=== PATIENT | female | born 1970 | race Caucasian/White ===

== ENCOUNTER 2024-01-29 11:56 | Emergency (ER) | payer SELFPAY ==
--- NOTE | 2024-01-29 12:52 | RAD REPORT ---
EXAM DESCRIPTION: Amanda Single View01/29/2024 12:39 pm CLINICAL HISTORY: cough COMPARISON: none FINDINGS: The lungs appear clear of acute infiltrate. The heart is normal size IMPRESSION: No acute abnormalities displayed
[2024-01-29 13:27] LABS: SARS-CoV-2 Antigen CONTROL BLUE LINE VIS/BG OK
[2024-01-29 13:28] LABS: SARS-CoV-2 Antigen Rapid Res Positive (Negative)
--- NOTE | 2024-01-29 13:35 | ER ---
Nurse's Notes [facility] Name: Mali Fernandez Age: 53 yrs Sex: Female : 1970 Arrival Date: 01/29/2024 Time: 11:56 Bed 9 Private MD: Diagnosis: Upper respiratory infection, COVID-19 Presentation: 01/28 12:25 Chief complaint: Patient states: headache not feeling well since last week, COVID was iw negative at home , also has sore throat and body aches. Coronavirus screen: Client presents with at least one sign or symptom that may indicate coronavirus-19. Ebola Screen: No symptoms or risks identified at this time. Initial Sepsis Screen: Does the patient meet any 2 criteria? No. Patient's initial sepsis screen is negative. Does the patient have a suspected source of infection? No. Patient's initial sepsis screen is negative. Risk Assessment: Do you want to hurt yourself or someone else? Patient reports no desire to harm self or others. Onset of symptoms. 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 - Infectious Disease History:: Denies. - Social history:: Smoking status: Patient denies any tobacco usage or history of. Screenin:25 [facility] ED Fall Risk Assessment (Adult) History of falling in the last 3 months, tl4 including since admission No falls in past 3 months (0 pts) Confusion or Disorientation No (0 pts) Intoxicated or Sedated No (0 pts) Impaired Gait No (0 pts) Mobility Assist Device Used No (0 pt) Altered Elimination No (0 pt) Score/Fall Risk Level 0 - 2 = Low Risk Oriented to surroundings, Maintained a safe environment, Educated pt \T\ family on fall prevention, incl call for assistance when getting out of bed, Assessed \T\ reinforced patient's understanding of fall precautions. Abuse screen: Denies threats or abuse. Denies injuries from another. Nutritional screening: No deficits noted. Tuberculosis screening: No symptoms or risk factors identified. Assessment: 13:30 General: Appears in no apparent distress. Behavior is calm, cooperative. Pain: tl4 Complains of pain in generalized body aches. Neuro: Level of Consciousness is awake, alert, obeys commands, Oriented to person, place, time, situation, Moves all extremities. Full function Gait is steady. Cardiovascular: Capillary refill < 3 seconds Patient's skin is warm and dry. Respiratory: Reports cough that is Airway is patent Respiratory effort is even, unlabored, Respiratory pattern is regular, symmetrical, Breath sounds are clear bilaterally. GI: No signs and/or symptoms were reported involving the gastrointestinal system. : No signs and/or symptoms were reported regarding the genitourinary system. EENT: Reports nasal congestion. Derm: No signs and/or symptoms reported regarding the dermatologic system. Musculoskeletal: No signs and/or symptoms reported regarding the musculoskeletal system. Vital Signs: 12:25 BP 201 / 104; Pulse 90; Resp 18; Temp 99.4; Pulse Ox 97% on R/A; Weight 87.09 kg; iw Height 5 ft. 5 in. ; Pain 10/10; 13:50 BP 164 / 75; Pulse 84; Resp 16; Temp 98.3(O); Pulse Ox 99% on R/A; tl4 12:25 Body Mass Index 31.95 (87.09 kg, 165.1 cm) iw 12:25 Pain Scale: Adult iw ED Course: 12:00 Patient arrived in ED. im 12:00 Pat Aguilar MD is Attending Physician. sp3 12:27 Triage completed. iw 12:32 Arm band placed on. iw 12:41 CXR XRAY In Process Unspecified. EDMS 13:32 Patient has correct armband on for positive identification. Bed in low position. Call tl4 light in reach. Provided Education on: call seaman, ed process. Door closed. Noise minimized. Lights dimmed. Moved to private room. 13:34 Albino Malik, SHANTA is Primary Nurse. tl4 13:42 No provider procedures requiring assistance completed. Patient did not have IV access tl4 during this emergency room visit. Administered Medications: No medications were administered Medication: 14:06 VIS not applicable for this client. tl4 Outcome: 13:35 Discharge ordered by . sp3 14:00 Discharged to home ambulatory, tl4 14:00 Condition: stable 14:00 Discharge instructions given to patient, Instructed on discharge instructions, follow up and referral plans. medication usage, Demonstrated understanding of instructions, follow-up care, medications, 14:11 Patient left the ED. tl4 Signatures: Dispatcher [employer] EDEmilee Monzon, RN RN Pat Condon MD MD sp3 Carina Fink Toni RN RN tl4 Corrections: (The following items were deleted from the chart) 12:32 12:25 BP 201 / 104; Pulse 90bpm; Resp 18bpm; Pulse Ox 97% RA; iw linda
--- NOTE | 2024-01-29 13:35 | EDPHYS ---
Physician Documentation [facility] Name: Mali Fernandez Age: 53 yrs Sex: Female : 1970 Arrival Date: 01/29/2024 Time: 11:56 Bed 9 Private MD: ED Physician Pat Aguilar HPI: 01/28 13:31 This 53 yrs old Female presents to ER via Ambulatory with complaints of Flu Symptoms. sp3 13:31 53-year-old female with history of hypertension presents to the ED with chief complaint sp3 cough, body aches and flu symptoms for the last 48 hours. She denies any other symptoms including vomiting, diarrhea, syncope, headache, fever, travel history, known sick contacts or any other signs or symptoms on ROS at this time.. 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 - Infectious Disease History:: Denies. - Social history:: Smoking status: Patient denies any tobacco usage or history of. ROS: 13:32 Eyes: Negative for injury, pain, redness, and discharge, Neck: Negative for injury, sp3 pain, and swelling, Cardiovascular: Negative for chest pain, palpitations, and edema, Abdomen/GI: Negative for abdominal pain, nausea, vomiting, diarrhea, and constipation, Back: Negative for injury and pain, MS/Extremity: Negative for injury and deformity, Skin: Negative for injury, rash, and discoloration, Neuro: Negative for headache, weakness, numbness, tingling, and seizure, Psych: Negative for depression, anxiety, suicide ideation, homicidal ideation, and hallucinations, Allergy/Immunology: Negative for hives, rash, and allergies, Endocrine: Negative for neck swelling, polydipsia, polyuria, polyphagia, and marked weight changes, 13:32 All other systems are negative, Exam: 13:33 Constitutional: This is a well developed, well nourished patient who is awake, alert, sp3 and in no acute distress. Head/Face: Normocephalic, atraumatic. ENT: Nares patent. No nasal discharge, no septal abnormalities noted. External auditory canals are clear. Oropharynx with no redness, swelling, or masses, exudates, or evidence of obstruction, uvula midline. Mucous membranes moist. Neck: Trachea midline, no thyromegaly or masses palpated, and no cervical lymphadenopathy. Supple, full range of motion without nuchal rigidity, or vertebral point tenderness. No Meningismus. Chest/axilla: Normal chest wall appearance and motion. Nontender with no deformity. No lesions are appreciated. Cardiovascular: Regular rate and rhythm with a normal S1 and S2. No gallops, murmurs, or rubs. Normal PMI, no JVD. No pulse deficits. Abdomen/GI: Soft, non-tender, with normal bowel sounds. No distension or tympany. No guarding or rebound. No evidence of tenderness throughout. Back: No spinal tenderness. No costovertebral tenderness. Full range of motion. Skin: Warm, dry with normal turgor. Normal color with no rashes, no lesions, and no evidence of cellulitis. MS/ Extremity: Pulses equal, no cyanosis. Neurovascular intact. Full, normal range of motion. Neuro: Awake and alert, GCS 15, oriented to person, place, time, and situation. Cranial nerves II-XII grossly intact. Motor strength 5/5 in all extremities. Sensory grossly intact. Cerebellar exam normal. Normal gait. Psych: Awake, alert, with orientation to person, place and time. Behavior, mood, and affect are within normal limits. 13:33 Respiratory: Active cough dry in nature, Vital Signs: 12:25 BP 201 / 104; Pulse 90; Resp 18; Temp 99.4; Pulse Ox 97% on R/A; Weight 87.09 kg; iw Height 5 ft. 5 in. ; Pain 10/10; 13:50 BP 164 / 75; Pulse 84; Resp 16; Temp 98.3(O); Pulse Ox 99% on R/A; tl4 12:25 Body Mass Index 31.95 (87.09 kg, 165.1 cm) iw 12:25 Pain Scale: Adult iw MDM: 12:04 Patient medically screened. sp3 13:34 Data reviewed: vital signs, nurses notes, lab test result(s), radiologic studies. ED sp3 course: 53-year-old female with URI symptoms. Differential diagnosis includes viral illness, COVID-19, influenza, strep pharyngitis, pneumonia, bronchitis, among others. I am at highly suspicious of sepsis or shock or any other critical illness. COVID-19 swab is positive. No further intervention indicated and we will safely educated discharge patient home at this time.. 01/28 12:04 Order name: Strep sp3 01/28 12:04 Order name: Flu; Complete Time: 13:30 sp3 01/28 12:04 Order name: SARS RAPID; Complete Time: 13:30 sp3 01/28 13:31 Order name: Throat Culture EDMS 01/28 12:04 Order name: CXR XRAY; Complete Time: 12:54 sp3 Administered Medications: No medications were administered Disposition Summary: 01/29/24 13:35 Discharge Ordered Notes: Location: Home sp3 Condition: Stable sp3 Diagnosis - Upper respiratory infection, COVID-19 sp3 Followup: sp3 - With: Private Physician - When: Upon discharge from the Emergency Department - Reason: Continuance of care Discharge Instructions: - Discharge Summary Sheet sp3 - COVID-19 sp3 Forms: - Medication Reconciliation Form sp3 - Antibiotic Education sp3 - Prescription Opioid Use sp3 - Patient Portal Instructions sp3 - Leadership Thank You Letter sp3 - Work release form tl4 Signatures: Dispatcher [employer] Emilee Mckoy RN RN iw Pat Aguilar MD MD sp3 Albino Malik RN RN tl4 Corrections: (The following items were deleted from the chart) 12: 12:04 Influenza Screen (A \T\ B)+BA.LAB.BRZ ordered. EDMS EDMS 12: 12:04 Group A Streptococcus Rapid Sc+BA.LAB.BRZ ordered. EDMS EDMS 12:04 12:04 SARS-COV-2 Antigen Rapid+I.LAB.BRZ ordered. EDMS EDMS 12:04 12:04 Chest Single View+RAD.RAD.BRZ ordered. EDMS EDMS
[2024-01-29 14:29] VITALS: BP 164/75; TEMP 98.3; O2SAT 99
== END 2024-01-29 14:11 | disposition home or self-care (01) ==
LOC: ER 11:56
DX: U07.1 COVID-19 (principal); J06.9 Acute upper respiratory infection, unspecified; I10 Essential (primary) hypertension
CPT/HCPCS: 36415; 71045; 87070; 87081; 87804; 87811; 99283